=== PATIENT | male | born 1955 | race Caucasian/White ===

== ENCOUNTER 2022-02-12 07:05 | Day surgery (SDC) | payer BC ==
[2022-02-12] MEDS ORDERED: fentaNYL 100 MCG/2 ML SDV ONE (07:19)
[2022-02-12] MEDS ORDERED: Propofol 200 MG/20 ML SDV ONE (07:19)
[2022-02-12] MEDS ORDERED: Midazolam 1 MG/ML 2 ML SDV ONE (07:19)
[2022-02-12] MEDS ORDERED: Sodium Chloride 0.9% 1,000 ML IV SCH (07:30)
== END 2022-02-12 09:35 | disposition home or self-care (01) ==
LOC: JP.SDS 07:05
PROVIDERS: ATTEND Surgery
DX: Z12.11 Encounter for screening for malignant neoplasm of colon (principal); K57.30 Diverticulosis of large intestine without perforation or abscess without bleeding; I10 Essential (primary) hypertension; E03.9 Hypothyroidism, unspecified; E66.9 Obesity, unspecified; Z87.891 Personal history of nicotine dependence; Z68.34 Body mass index [BMI] 34.0-34.9, adult
CPT/HCPCS: J2250; J2704; J3010; J7030

== ENCOUNTER 2022-02-26 06:41 | Day surgery (SDC) | payer BC ==
[~2022-02-26 06:41] MED LIST: Sodium Chloride 0.9% 1,000 ML IV SCH
[2022-02-26] MEDS ORDERED: Propofol 200 MG/20 ML SDV ONE (07:38)
[2022-02-26] MEDS ORDERED: fentaNYL 100 MCG/2 ML SDV ONE (07:38)
[2022-02-26] MEDS ORDERED: Midazolam 1 MG/ML 2 ML SDV ONE (07:38)
== END 2022-02-26 09:40 | disposition home or self-care (01) ==
LOC: JP.SDS 06:41
PROVIDERS: ATTEND Surgery
DX: Z12.11 Encounter for screening for malignant neoplasm of colon (principal); D12.5 Benign neoplasm of sigmoid colon; K57.30 Diverticulosis of large intestine without perforation or abscess without bleeding; I10 Essential (primary) hypertension; E66.9 Obesity, unspecified; Z68.32 Body mass index [BMI] 32.0-32.9, adult
CPT/HCPCS: 88305; J2250; J2704; J3010; J7030